=== PATIENT | female | born 1965 | race Two or more races ===

== ENCOUNTER 2025-09-27 23:32 | Inpatient (IN) | payer MEDICAID, OTHER ==
[~2025-09-27] VITALS: Ht 167.6 cm; Wt 82.8 kg
[2025-09-28 00:14] LABS: Hematocrit 45.3 % (36.0-46.0); Hemoglobin 15.9 g/dL (12.2-16.2); Mean Corpuscular Hemoglobin 30.4 pg (28.0-32.0); Mean Corpuscular Volume 86.7 fL (80.0-100.0); Nucleated Red Blood Cells % 0.0 %
[2025-09-28 00:25] LABS: Alanine Aminotransferase 22 U/L (7-40); Alkaline Phosphatase 96 U/L (46-116); Anion Gap 12 (5-15); BUN/Creatinine Ratio 18.8 (10.0-20.0); Blood Urea Nitrogen 15 mg/dL (9-23); Calcium 10.4 mg/dL (8.7-10.4); Carbon Dioxide 23 mmol/L (20-31); Chloride 103 mmol/L (98-107); Lipase 48 U/L (12-53); Sodium 138 mmol/L (136-145); Total Protein 8.0 g/dL (5.7-8.2)
[2025-09-28 00:26] LABS: Bilirubin, Total 0.6 mg/dL (0.2-1.0)
[2025-09-28 00:29] LABS: Albumin 5.0 g/dL (3.2-4.8); Glucose 155 mg/dL (74-106); Potassium 3.4 mmol/L (3.5-5.1)
[2025-09-28 00:33] LABS: Lactic Acid w/Reflex 2.4 mmol/L (0.4-2.0)
[2025-09-28] MEDS: ONDANSETRON ODT 4 MG TAB PO ONE (01:19)
[2025-09-28] MEDS: MAALOX PLUS or MAALOX 30 ML PO ONE (01:41)
--- NOTE | 2025-09-28 02:46 | ED.PDOC ---
GI ASSESSMENT HPI Comments 60-year-old female complaining of nausea and vomiting and burning in the throat. States she was at work today when she grabbed a cleaning solution, [employer] brand dishwashing disinfectant, she placed it in her lunch meal as she was going to take at home to use it at home. She states she went to lunch and was thirsty, she went to grab her water to drink and on accident grab the cleaning solution and took a Swig. States she swallowed the solution down and within 20 minutes started having throat pain and stomach pain. States she started having vomiting. She states it did burn when she drinks solution, she still has constant burning in his throat and now. Chief Complaint: Ingestion Time Seen by MD: 00:20 Reviewed Notes: Nurses Notes Allergies: Coded Allergies: NO KNOWN ALLERGIES (Unverified , 09/28/25) Information Source: Patient Mode of Arrival: Ambulatory Quality: Burning Vomitus: Bilious Past Medical History PAST MEDICAL HISTORY: Denies Surgical History: Denies all surgeries CARGO BROKER History: No Pertinent CARGO BROKER History Constitutional: denies: chills, diaphoresis, fatigue, fever, malaise, sweats, weakness, others EENTM: reports: throat pain; denies: blurred vision, double vision, ear bleeding, ear discharge, ear drainage, ear pain, ear ringing, eye pain, eye redness, hearing loss, mouth pain, mouth swelling, nasal discharge, nose bleeding, nose congestion, nose pain, photophobia, tearing, voice changes, others Respiratory: denies: cough, hemoptysis, orthopnea, SOB at rest, shortness of breath, SOB with excertion, stridor, wheezing, others Cardiovascular: denies: chest pain, dizzy spells, diaphoresis, Dyspnea on exertion, edema, irregular heart beat, left arm pain, lightheadedness, palpitations, PND, syncope, others Gastrointestinal: reports: nausea, vomiting; denies: abdomen distended, abdominal pain, blood streaked bowels, constipated, diarrhea, dysphagia, difficulty swallowing, hematemesis, melena, poor appetite, poor fluid intake, rectal bleeding, rectal pain, others Genitourinary: denies: abnormal vagina bleeding, burning, dyspareunia, dysuria, flank pain, frequency, hematuria, incontinence, pain, , vagina discharge, urgency, others Neurological: denies: dizziness, fainting, headache, left sided numbness, left sided weakness, numbness, paresthesia, pre-existing deficit, right sided numbness, right sided weakness, seizure, speech problems, tingling, tremors, weakness, others Musculoskeletal: denies: back pain, gout, joint pain, joint swelling, muscle pain, muscle stiffness, neck pain, others Integumetry: denies: bruises, change in color, change in hair/nails, dryness, laceration, lesions, lumps, rash, wounds, others Physical Exam General Appearance: Moderate Distress, Normal HEENT: Normal ENT Inspection, Pharynx Normal, TMs Normal Neck: Full Range of Motion, Non-Tender, Normal, Normal Inspection Respiratory: Chest Non-Tender, Lungs Clear, No Accessory Muscle Use, No Respiratory Distress, Normal Breath Sounds Cardiovascular: No Edema, No JVD, No Murmur, No Gallop, Normal Peripheral Pulses, Regular Rate/Rhythm Breast Exam: Deferred Gastrointestinal: No Organomegaly, Non Tender, No Pulsatile Mass, Normal Bowel Sounds, Soft Genitalia: Deferred Pelvic: Deferred Rectal: Deferred Extremities: No calf tenderness, Normal capillary refill, Normal inspection, Normal range of motion, Non-tender, No pedal edema Musculoskeletal : Apperance: Normal Neurologic: Alert, 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 Was a procedure done?: No GI differential Dx Differential Diagnosis: Esophageal Varicies, Other (Esophagitis) X-Ray, Labs, Meds, VS Vital Signs Date Time Temp Pulse Resp B/P (MAP) Pulse Ox O2 Delivery O2 Flow Rate FiO2 09/28/25 01:21 83 20 99 Room Air 09/28/25 01:21 97.5 83 20 149/91 (110) 99 97.5 09/28/25 00:23 99 18 151/96 (114) 99 09/27/25 23:46 92 09/27/25 23:33 97.0 95 26 154/94 98 97.0 Lab Test 09/28/25 00:04 Range/Units White Blood Count 10.7 4.4-10.8 10^3/uL Red Blood Count 5.22 H 4.0-5.20 10^6/uL Hemoglobin 15.9 12.2-16.2 g/dL Hematocrit 45.3 36.0-46.0 % Mean Corpuscular Volume 86.7 80.0-100.0 fL Mean Corpuscular Hemoglobin 30.4 28.0-32.0 pg Mean Corpuscular Hemoglobin Concent 35.1 32.0-36.0 g/dL Red Cell Distribution Width 13.3 11.8-14.3 % Platelet Count 247 140-450 10^3/uL Mean Platelet Volume 7.6 6.9-10.8 fL Neutrophils (%) (Auto) 65.8 37.0-80.0 % Lymphocytes (%) (Auto) 26.8 10.0-50.0 % Monocytes (%) (Auto) 5.6 0.0-12.0 % Eosinophils (%) (Auto) 1.2 0.0-7.0 % Basophils (%) (Auto) 0.6 0.0-2.0 % Neutrophils # (Auto) 7.1 1.6-8.6 10 ^3/uL Lymphocytes # (Auto) 2.9 0.4-5.4 10 ^3/uL Monocytes # (Auto) 0.6 0-1.3 10 ^3/uL Eosinophils # (Auto) 0.1 0-0.8 10 ^3/uL Basophils # (Auto) 0.1 0-0.2 10 ^3/uL Nucleated Red Blood Cells 0.0 % Sodium Level 138 136-145 mmol/L Potassium Level 3.4 L 3.5-5.1 mmol/L Chloride Level 103 98-107 mmol/L Carbon Dioxide Level 23 20-31 mmol/L Anion Gap 12 5-15 Blood Urea Nitrogen 15 9-23 mg/dL Creatinine 0.80 0.550-1.02 mg/dL Glomerular Filtration Rate Calc 85 >90 mL/min BUN/Creatinine Ratio 18.8 10.0-20.0 Serum Glucose 155 H 74-106 mg/dL Lactic Acid Level 2.4 *H 0.4-2.0 mmol/L Calcium Level 10.4 8.7-10.4 mg/dL Total Bilirubin 0.6 0.2-1.0 mg/dL Aspartate Amino Transferase (AST) 21 13-40 U/L Alanine Aminotransferase (ALT) 22 7-40 U/L Alkaline Phosphatase 96 46-116 U/L Troponin I High Sensitivity < 3 L </=34 ng/L Total Protein 8.0 5.7-8.2 g/dL Albumin 5.0 H 3.2-4.8 g/dL Lipase 48 12-53 U/L Current Medications Medications (Trade) Dose Ordered Sig/Juvencio Route Start Time Stop Time Status Last Admin Ondansetron HCl (Zofran Po) 4 mg ONCE ONCE PO 09/28/25 00:45 09/28/25 00:46 DC 09/28/25 01:19 Al Hydrox/Mg Hydrox/Simethicone (Maalox Plus) 30 ml ONCE ONCE PO 09/28/25 01:00 09/28/25 01:01 DC 09/28/25 01:41 X-Ray, Labs, Meds, VS Comment Patient reports no significant change in her symptoms, so reporting burning with swallowing. She was able to tolerate and swallow the GI cocktail. Due to her continued pain, patient will be admitted for GI consult in the morning and pain control. Patient has no airway compromise at this time. Per poison control, if patient has any troubles with swallowing and no significant improvement she is to be admitted for GI consult at endoscopy. Time of 1ST Reevaluation: 02:44 Reevaluation 1ST: Unchanged Patient Education/Counseling: Diagnosis, Treatment Family Education/Counseling: Diagnosis, Treatment SEPSIS Sepsis Screen Date sepsis recognized/suspect: Sep 27, 2025 Time Sepsis recognized/suspect: 2337 Recent Procedure: No On Antibiotic Therapy: No Respiratory Rate >20: No Heart Rate >90: Yes Temp<36 C (96.8 F) or >38.3 C: No SBP <90 or MAP <65 mmHG: No New Acute Mental Status Change: No Is the patient on CPAP, BIPAP,: No Physician Orders Po Trial (09/27/25 ) Vital Signs Date Time Temp Pulse Resp B/P (MAP) Pulse Ox O2 Delivery O2 Flow Rate FiO2 09/28/25 01:21 83 20 99 Room Air 09/28/25 01:21 97.5 83 20 149/91 (110) 99 97.5 09/28/25 00:23 99 18 151/96 (114) 99 09/27/25 23:46 92 09/27/25 23:33 97.0 95 26 154/94 98 97.0 Laboratory Tests Test 09/28/25 00:04 Lactic Acid Level 2.4 mmol/L (0.4-2.0) *H White Blood Count 10.7 10^3/uL (4.4-10.8) Medications Medications Dose Ordered Sig/Juvencio Route Start Time Stop Time Status Last Admin Dose Admin Al Hydrox/Mg Hydrox/Simethicone 30 ml ONCE ONCE PO 09/28/25 01:00 09/28/25 01:01 DC 09/28/25 01:41 Ondansetron HCl 4 mg ONCE ONCE PO 09/28/25 00:45 09/28/25 00:46 DC 09/28/25 01:19 Departure 1 Departure Time of Disposition: 02:37 Impression: Primary Impression: Ingestion of caustic substance Qualified Codes: T54.91XA - Toxic effect of unspecified corrosive substance, accidental (unintentional), initial encounter Disposition: ADMITTED INPATIENT Condition: Stable Discharged With: Self Critical Care Note Critical Care Time?: No Stability Stability form required: No Heart Score Heart Score: Heart Score Response (Comments) Value History N/A 0 EKG N/A 0 Age N/A 0 Risk Factors N/A 0 Troponin N/A 0 Total 0 LEANN JACOB Sep 28, 2025 02:46
--- NOTE | 2025-09-28 04:24 | DVHHPRES ---
History of Present Illness Resident Creating Document: MARI GALLAGHER History of Present Illness Patient is a Icelandic-speaking 60-year-old female with past medical history of vertigo, presented to [facility] ED after accidental ingestion of a cleaning solution. Earlier in the day, while at work, the patient mistakenly drank [place] brand dishwashing disinfectant, believing it was water. She immediately experienced a burning sensation in her throat upon ingestion. Within 20 minutes, she developed nausea, and began vomiting. She reports that the burning in her throat has persisted and and active vomiting. On evaluation in the ED, patient is afebrile, tachycardia and blood pressure is 154/94 mmHg. Initial labs show hypokalemia and lactic acid 2.4. The patient was placed NPO, started on pain management and IV fluids. Patient is admitted for further evaluation and management. Past Medical History Vertigo Past Surgical History Shoulder surgery Family History: None Smoke: No ALCOHOL: none Drugs: None Lives: with Family Review of Systems Review of Systems Eyes: No Pain, No Vision change, No Conjunctivae inflammation, No Eyelid inflammation, No Other, No Redness ENT: No Ear pain, No Ear discharge, No Nose pain, No Nose discharge, No Nose congestion, No Mouth pain, No Mouth swelling, Throat pain, No Throat swelling, No Other Cardiovascular: No Chest Pain, No Palpitations, No Orthopnea, No Paroxysmal No Dyspnea, No Edema, No Lt Headedness, No Other Respiratory: No Cough, No Dry, No Shortness of breath, No SOB with exertion, No Wheezing, No Hemoptysis, No Pleuritic Pain, No Sputum, No Other Gastrointestinal: Nausea, Vomiting, No Abdominal Pain, No Diarrhea, No Constipation, No Melena, No Hematochezia, No Other Genitourinary: No Dysuria, No Frequency, No Incontinence, No Hematuria, No Retention, No Other Musculoskeletal: No other, No neck pain, No shoulder pain, No arm pain, No back pain, No hand pain, No leg pain, No foot pain Skin: No Rash, No Lesions, No Jaundice, No Bruising, No Other Allergies: Coded Allergies: NO KNOWN ALLERGIES (Unverified , 09/28/25) Exam Vital Signs Vital Signs Date Time Temp Pulse Resp B/P (MAP) Pulse Ox O2 Delivery O2 Flow Rate FiO2 09/28/25 01:21 83 20 99 Room Air 09/28/25 01:21 97.5 149/91 (110) 97.5 Exam General Appearance: Cooperative. Well developed. Well nourished. NAD Head Exam: Normal inspection Neck Exam: Normal inspection. Non-tender. Normal alignment Pulmonary/Respiratory: Chest non-tender. Clear bilateral breath sounds, no cr ackles, no wheezing. Cardiovascular/Chest: Regular rate and rhythm. No murmurs. No JVD. Peripheral Pulses: 2+ Radial (R). 2+ Radial (L). 2+ Pedal (R). 2+ Pedal (L) Abdominal Exam: Normal bowel sounds. Soft. normal abdomen, no visible veins, Nontender. No hepatospenomegaly. No masses Ankle Exam: Negative ankle edema Lower extremities: Negative lower extremity edema Neuro/Mental Status: A&O x4. Coherent. Thoughts/Psych: Normal thought pattern. Appropriate mood and affect. Good judgement and insight Skin Exam: Normal inspection. Normal color. Warm. Dry Labs/Xrays Labs Test 09/28/25 02:16 09/28/25 00:04 Range/Units Lactic Acid Level 3.0 *H 0.4-2.0 mmol/L White Blood Count 10.7 4.4-10.8 10^3/uL Red Blood Count 5.22 H 4.0-5.20 10^6/uL Hemoglobin 15.9 12.2-16.2 g/dL Hematocrit 45.3 36.0-46.0 % Mean Corpuscular Volume 86.7 80.0-100.0 fL Mean Corpuscular Hemoglobin 30.4 28.0-32.0 pg Mean Corpuscular Hemoglobin Concent 35.1 32.0-36.0 g/dL Red Cell Distribution Width 13.3 11.8-14.3 % Platelet Count 247 140-450 10^3/uL Mean Platelet Volume 7.6 6.9-10.8 fL Neutrophils (%) (Auto) 65.8 37.0-80.0 % Lymphocytes (%) (Auto) 26.8 10.0-50.0 % Monocytes (%) (Auto) 5.6 0.0-12.0 % Eosinophils (%) (Auto) 1.2 0.0-7.0 % Basophils (%) (Auto) 0.6 0.0-2.0 % Neutrophils # (Auto) 7.1 1.6-8.6 10 ^3/uL Lymphocytes # (Auto) 2.9 0.4-5.4 10 ^3/uL Monocytes # (Auto) 0.6 0-1.3 10 ^3/uL Eosinophils # (Auto) 0.1 0-0.8 10 ^3/uL Basophils # (Auto) 0.1 0-0.2 10 ^3/uL Nucleated Red Blood Cells 0.0 % Sodium Level 138 136-145 mmol/L Potassium Level 3.4 L 3.5-5.1 mmol/L Chloride Level 103 98-107 mmol/L Carbon Dioxide Level 23 20-31 mmol/L Anion Gap 12 5-15 Blood Urea Nitrogen 15 9-23 mg/dL Creatinine 0.80 0.550-1.02 mg/dL Glomerular Filtration Rate Calc 85 >90 mL/min BUN/Creatinine Ratio 18.8 10.0-20.0 Serum Glucose 155 H 74-106 mg/dL Calcium Level 10.4 8.7-10.4 mg/dL Total Bilirubin 0.6 0.2-1.0 mg/dL Aspartate Amino Transferase (AST) 21 13-40 U/L Alanine Aminotransferase (ALT) 22 7-40 U/L Alkaline Phosphatase 96 46-116 U/L Troponin I High Sensitivity < 3 L </=34 ng/L Total Protein 8.0 5.7-8.2 g/dL Albumin 5.0 H 3.2-4.8 g/dL Lipase 48 12-53 U/L SEPSIS Sepsis Screen Date sepsis recognized/suspect: Sep 27, 2025 Time Sepsis recognized/suspect: 2337 Recent Procedure: No On Antibiotic Therapy: No Respiratory Rate >20: No Heart Rate >90: Yes Temp<36 C (96.8 F) or >38.3 C: No SBP <90 or MAP <65 mmHG: No New Acute Mental Status Change: No Is the patient on CPAP, BIPAP,: No Physician Orders Po Trial (09/27/25 ) * Gi Dvh Exhaust Equipment Operator (09/28/25 02:47) Admit (09/28/25 03:37) Allergies (09/28/25 03:37) Code Status (09/28/25 03:37) Ondansetron Hcl (Zofran) (09/28/25 03:45) Complete Blood Count (09/28/25 04:00) Comprehensive Metabolic Panel (09/28/25 04:00) Npo (Nothing By Mouth) Diet (09/28/25 Breakfast) Condition: Serious (09/28/25 03:37) Stat Ekg For Chest Pain (09/28/25 03:37) Notify Of Changes From Base (09/28/25 03:37) Loop Cutter For 24 Hours (09/28/25 03:37) Emergency Dysrhythmia Protocol (09/28/25 03:37) Rhythm Strips Once Every Shift (09/28/25 03:37) Pantoprazole (Protonix) (09/28/25 10:00) Pantoprazole (Protonix) (09/28/25 03:45) NS (09/28/25 03:45) NS (09/28/25 03:45) Chest Xray 1 View (09/28/25 03:37) Hydromorphone Injection (Dilaudid Inject (09/28/25 03:45) Lactic Acid W/ Reflex Order (09/28/25 04:00) Electrocardigram (09/28/25 03:37) Ondansetron Hcl (Zofran) (09/28/25 03:45) Abdomen Contrast Only (09/28/25 03:37) Chest With Contrast (09/28/25 03:37) Potassium Chl Sekou Kcl (09/28/25 03:45) Magnesium (09/28/25 03:37) Urinalysis (09/28/25 03:37) Drug Screen (09/28/25 03:37) PTPTT (09/28/25 03:37) Vital Signs Date Time Temp Pulse Resp B/P (MAP) Pulse Ox O2 Delivery O2 Flow Rate FiO2 09/28/25 01:21 83 20 99 Room Air 09/28/25 01:21 97.5 83 20 149/91 (110) 99 97.5 09/28/25 00:23 99 18 151/96 (114) 99 09/27/25 23:46 92 09/27/25 23:33 97.0 95 26 154/94 98 97.0 Laboratory Tests Test 09/28/25 00:04 09/28/25 02:16 Lactic Acid Level 2.4 mmol/L (0.4-2.0) *H 3.0 mmol/L (0.4-2.0) *H White Blood Count 10.7 10^3/uL (4.4-10.8) Medications Medications Dose Ordered Sig/Juvencio Route Start Time Stop Time Status Last Admin Dose Admin Al Hydrox/Mg Hydrox/Simethicone 30 ml ONCE ONCE PO 09/28/25 01:00 09/28/25 01:01 DC 09/28/25 01:41 30 ML Ondansetron HCl 4 mg ONCE ONCE PO 09/28/25 00:45 09/28/25 00:46 DC 09/28/25 01:19 4 MG Assessment/Plan Assessment/Plan Caustic substance ingestion, likely esophageal injury Intractable nausea and vomiting due to above Chest X-ray ordered CT chest ordered to rule out intramural necrosis of GI tract GI consult NPO pain management with Dilaudid 0.5 MG IV q4h prn Zofran 4 MG IV q4h prn Protonix 40 MG IV bid Potassium IV q3h IV NS 1,000 MLS/HR IV NS 125 MLS/HR one UA and UDS Lactic acid 2.4 > 3.0 > 2.4 MG PT/PTT Diet: NPO PUD prophylaxis: protonix 40mg Goals of care: Full code, discussed for >30 minutes on 09/28/25 Plan discussed with patient Plan discussed with Dr. Tejada Plan discussed with: Patient, Daughter My Orders Orders - MARI GALLAGHER RESIDENT Procedure Category Date Status Time Admit ADMIT 09/28/25 Verified 03:37 Allergies [facility] 09/28/25 Verified 03:37 Code Status CODE 09/28/25 Verified 03:37 Ondansetron Hcl PHA 09/28/25 Verified (Zofran) 03:45 Complete Blood Count LAB 09/28/25 Verified 04:00 Comprehensive LAB 09/28/25 Verified Metabolic Panel 04:00 Npo (Nothing By DIET 09/28/25 Verified Mouth) Diet Breakfast Condition: Serious [facility] 09/28/25 Verified 03:37 Stat Ekg For Chest [facility] 09/28/25 Verified Pain 03:37 Notify Of Changes [facility] 09/28/25 Verified From Base 03:37 Loop Cutter For [facility] 09/28/25 Verified 24 Hours 03:37 Emergency Dysrhythmia [facility] 09/28/25 Verified Protocol 03:37 Rhythm Strips Once [facility] 09/28/25 Verified Every Shift 03:37 Pantoprazole PHA 09/28/25 Verified (Protonix) 10:00 Pantoprazole PHA 09/28/25 Verified (Protonix) 03:45 NS PHA 09/28/25 Verified 03:45 NS PHA 09/28/25 Verified 03:45 Chest Xray 1 View XY 09/28/25 Verified 03:37 Hydromorphone PHA 09/28/25 Verified Injection (Dilaudid 03:45 Lactic Acid W/ Reflex LAB 09/28/25 Verified Order 04:00 Electrocardigram EKG 09/28/25 Verified 03:37 Ondansetron Hcl PHA 09/28/25 Verified (Zofran) 03:[address] 09/28/25 Verified 03:[address] 09/28/25 Verified 03:37 Potassium Chl Sekou PHA 09/28/25 Verified KCL 03:45 Magnesium LAB 09/28/25 Verified 03:37 Urinalysis LAB 09/28/25 Verified 03:37 Drug Screen LAB 09/28/25 Verified 03:37 PTPTT LAB 09/28/25 Verified 03:37 Date of Service: Sep 28, 2025 Billing Provider: AARON TEJADA MD Common Visit Codes: 88156-[id number] INP/OBS CARE (HIGH) Secondary Visit Codes: [id number] CARE PLAN 30 MINUTES MARI GALLAGHER RESIDENT Sep 28, 2025 04:23
[2025-09-28 04:34] LABS: Hematocrit 44.3 % (36.0-46.0); Hemoglobin 15.2 g/dL (12.2-16.2); Mean Corpuscular Hemoglobin 29.8 pg (28.0-32.0); Mean Corpuscular Volume 87.0 fL (80.0-100.0); Nucleated Red Blood Cells % 0.0 %
[2025-09-28 04:48] LABS: INR 1.06 (0.9-1.15); Partial Thromboplastin Time 25.7 SEC (24.5-34.5); Prothrombin Time 11.2 sec (9.3-11.8)
[2025-09-28] MEDS: SODIUM CHLORIDE 0.9% 1,000 ML IV ONE ×2 (05:01→06:23)
[2025-09-28 05:03] LABS: Alanine Aminotransferase 24 U/L (7-40); Alkaline Phosphatase 93 U/L (46-116); Anion Gap 14 (5-15); BUN/Creatinine Ratio 28.9 (10.0-20.0); Bilirubin, Total 0.4 mg/dL (0.2-1.0); Calcium 9.9 mg/dL (8.7-10.4); Carbon Dioxide 23 mmol/L (20-31); Chloride 104 mmol/L (98-107); Potassium 5.0 mmol/L (3.5-5.1); Sodium 141 mmol/L (136-145); Total Protein 7.6 g/dL (5.7-8.2)
[2025-09-28 05:12] LABS: Albumin 4.8 g/dL (3.2-4.8); Blood Urea Nitrogen 24 mg/dL (9-23); Glucose 141 mg/dL (74-106)
[2025-09-28 05:13] LABS: Lactic Acid w/Reflex 2.4 mmol/L (0.4-2.0)
[2025-09-28] MEDS ORDERED: IOHEXOL 300 MG/ML 100ML BOTTLE IJ ONE (05:34)
[2025-09-28] MEDS: POTASSIUM CHL 20MEQ/100ML 100 ML IV SCH (05:45)
--- NOTE | 2025-09-28 06:07 | DVH ---
CHEST RADIOGRAPH Indication: chest pain Technique: Single frontal view of the chest was obtained COMPARISON: None FINDINGS: Lines and Tubes: None Lungs: Clear Pleura: No effusion. No pneumothorax. Cardiomediastinal contours: Unremarkable Bones: Unremarkable IMPRESSION: 1. No acute disease.
[2025-09-28] MEDS: ONDANSETRON HCL 4 MG/2 ML VIAL IV ONE (06:22)
[2025-09-28] MEDS: PANTOPRAZOLE 40 MG/10 ML VIAL INJ IV ONE (06:22)
--- NOTE | 2025-09-28 06:42 | DVH ---
Exam: CT CT CHEST/AB/PL W CON- IV ONLY History: caustic substance ingestion Comparison Study: None Technique: Multidetector spiral CT of the chest, abdomen and pelvis was performed from lower neck to pubic symphysis. Intravenous contrast was administered during this examination. Portal venous imaging was obtained. Axial, coronal and sagittal multiplanar reformats were performed by the technologist on a separate workstation. Radiation Dose : 1. Chest/Abdomen/Pelvis: CTDIvol 18.83 mGy, DLP 1363.14 mGy*cm. Findings: Lower neck: Normal thyroid. Lungs: No focal consolidation, pleural effusion or pneumothorax. Heart/Vascular Structures: Normal heart size. No pericardial effusion. Lymph Nodes: No adenopathy Pleura: No pleural effusion or significant pneumothorax. Liver: The liver is normal in size. No focal lesions. Normal hepatic vascular enhancement. Gallbladder and Biliary Tree: Unremarkable Spleen: Unremarkable Pancreas: The pancreas is normal in appearance without focal lesions or abnormal enhancement. Adrenal Glands: Unremarkable Kidneys: Kidneys demonstrate normal symmetric enhancement without focal lesions, calculi or hydronephrosis. Bladder: Unremarkable Bowel: The stomach is grossly normal in appearance. Retained colorectal stool. Small bowel and colon are otherwise normal in caliber and distribution. The appendix is normal. Ascites: Absent Lymphadenopathy: No mesenteric, retroperitoneal or periportal lymphadenopathy. Abdominal Wall and Mesentery: Unremarkable. Vasculature: The visualized abdominal aorta is normal in size and caliber. Abdominal and pelvic vessels demonstrate normal enhancement. Pelvic Organs: Unremarkable Musculoskeletal: No aggressive focal bony lesions, acute fractures or dislocation. IMPRESSION: 1. No acute findings involving the chest, abdomen or pelvis. 2. Retained colorectal stool.
[2025-09-28 07:45] VITALS: BP 141/78; PULSE 96; RESP 18; TEMP 98.4; O2SAT 97
[2025-09-28 07:53] LABS: Urine Protein, UAD Negative (Negative)
[2025-09-28 07:56] LABS: Amphetamine Screen, Urine Neg (NEGATIVE); Barbiturate Scree,Urine Neg (NEGATIVE); Benzodiazephine Screen, Urine Neg (NEGATIVE); Cannabinoid Screen, Urine Neg (NEGATIVE); Cocaine Screen, Urine Neg (NEGATIVE); Opiate Scree,Urine Neg (NEGATIVE); Phencyclidine Screen, Urine Neg (NEGATIVE)
[2025-09-28] MEDS: PANTOPRAZOLE 40 MG/10 ML VIAL INJ IV SCH (10:00)
[2025-09-28] MEDS: HYDROmorphone HCL 2 MG/ML VL/or syr IV PRN (10:40)
[2025-09-28] MEDS: SODIUM CHLORIDE 0.9% 500 ML IV ONE (10:46)
--- NOTE | 2025-09-28 12:39 | DVHPN2 ---
Reviewed: Care Plan, H&P Changes from previous H/P or p: No Changes General: Per HPI Objective Vitals Vital Signs Date Time Temp Pulse Resp B/P (MAP) Pulse Ox O2 Delivery O2 Flow Rate FiO2 09/28/25 10:40 96 18 141/78 09/28/25 07:45 98.4 97 98.4 09/28/25 01:21 Room Air Exam Gen - no pallor, no scleral icterus Skin - Patients skin is warm and dry. HEENT - normocephalic, atraumatic, dry mucous membranes. Neck - supple, no lymphadenopathy Pulmonary - B/L clear breath sounds cardiovascular - regular S1,S2 heard GI - soft nontender abdomen. Bowel sounds normoactive. Neurological - Patient is alert and oriented x4. No motor or sensory weakness Medications Current Medications Medications Dose Ordered Sig/Juvencio Route Start Time Stop Time Status Last Admin Dose Admin Ondansetron HCl 4 mg Q4HP PRN IV 09/28/25 03:45 Pantoprazole Sodium 40 mg BID IV 09/28/25 10:00 Hydromorphone HCl 0.5 mg Q4HPRN PRN IV 09/28/25 03:45 09/28/25 10:40 0.5 MG Sucralfate 1 gm QID@0600,1130,1700,2200 PO 09/28/25 11:30 Lidocaine HCl 5 ml Q6HR MT 09/28/25 12:00 Laboratory Results Laboratory Tests 09/28/25 04:15 Chemistry Test 09/28/25 00:04 09/28/25 04:15 Albumin 5.0 g/dL (3.2-4.8) H 4.8 g/dL (3.2-4.8) Calcium Level 10.4 mg/dL (8.7-10.4) 9.9 mg/dL (8.7-10.4) Total Protein 8.0 g/dL (5.7-8.2) 7.6 g/dL (5.7-8.2) Magnesium Level 2.1 mg/dL (1.6-2.6) Coagulation Test 09/28/25 04:15 Prothrombin Time 11.2 sec (9.3-11.8) Prothrombin Time INR 1.06 (0.9-1.15) Activated Partial Thromboplast Time 25.7 SEC (24.5-34.5) Lipid panel Test 09/28/25 00:04 Lipase 48 U/L (12-53) LFT Test 09/28/25 00:04 09/28/25 04:15 Alanine Aminotransferase (ALT) 22 U/L (7-40) 24 U/L (7-40) Alkaline Phosphatase 96 U/L (46-116) 93 U/L (46-116) Aspartate Amino Transferase (AST) 21 U/L (13-40) 26 U/L (13-40) Total Bilirubin 0.6 mg/dL (0.2-1.0) 0.4 mg/dL (0.2-1.0) Urinalysis Test 09/28/25 07:32 Urine Color Light-yellow (Yellow) Urine Clarity Clear (Clear) Urine pH 7.0 (5.0-9.0) Urine Specific [place] 1.039 (1.001-1.035) Urine Protein Negative (Negative) Urine Ketones Negative (Negative) Urine Blood Negative /uL (Negative) Urine Nitrite Negative (Negative) Urine Bilirubin Negative (Negative) Urine Urobilinogen Normal mg/dL (Negative) Urine Leukocyte Esterase Negative /uL (Negative) Urine RBC 1 /hpf (0 - 4) Urine Microscopic WBC 1 /HPF (0-5) Urine Squamous Epithelial Cells None seen /hpf (<5) Urine Bacteria None seen /hpf (None Seen) Urine Glucose Normal mg/dL (Normal) Labs and/or images reviewed: Labs reviewed by me, Image(s) reviewed by me Assessment/Plan Assessment/Plan 60-year-old female with past medical history of vertigo, presented to [facility] ED after accidental ingestion of a cleaning solution. Earlier in the day, while at work, the patient mistakenly drank [place] brand dishwashing disinfectant, believing it was water. She immediately experienced a burning sensation in her throat upon ingestion. Within 20 minutes, she developed nausea, and began vomiting. She reports that the burning in her throat has persisted and and active vomiting. On evaluation in the ED, patient is afebrile, tachycardia and blood pressure is 154/94 mmHg. Initial labs show hypokalemia and lactic acid 2.4. The patient was placed NPO, started on pain management and IV fluids. Patient is admitted for further evaluation and management. 09/28: Patient drank dishwashing disinfectant, unclear if it is acidic or alkalotic. We will keep patient NPO. Lactic acidosis we will give IV fluids and repeat lactic follow up. GI consult pending. Diagnosis: Odynophagia likely due to caustic ingestion Possible acute gastritis chemical induced SIRS Lactic acidosis, likely due to IV VD from vomiting Intractable nausea and vomiting Plan - continue conservative management -GI consulted: Plan for IV Protonix- Carafate 10 mL q.i.d.0- lidocaine viscous 5 mL q.i.d.- started on clear liquid diet, we will see how the patient tolerates, if with the patient's odynophagia does not resolve we may endoscopy - daily labs CBC CMP Continue other home medications as patient has been on clear liquid diet Tele Full code Plan discussed with: Patient Date of Service: Sep 28, 2025 Billing Provider: LINDA VALDEZ MD Common Visit Codes: [id number] INP/OBS CARE(HIGH) LINDA VALDEZ MD Sep 28, 2025 12:39
[2025-09-28] MEDS: SUCRALFATE 1 GM/10 ML ORAL SUSP PO SCH (12:42)
[2025-09-28 12:44] VITALS: BP 124/68; PULSE 83; RESP 18; TEMP 98.5; O2SAT 96
[2025-09-28] MEDS: LIDOCAINE VISCOUS 2% 15ML UD MT SCH (12:48)
--- NOTE | 2025-09-28 13:27 | DVHCONRES ---
Date Seen: Sep 28, 2025 Resident Creating Document: JHAJJCHE RESIDENT Referring Physician LISA Pimentel Reason for Consultation Esophagitis s/p caustic chemical ingestion History of Present Illness Patient is a Faroese-speaking 60-year-old female with past medical history of vertigo, presented to [facility] ED after accidental ingestion of a cleaning solution. Earlier in the day, while at work, the patient mistakenly drank [place] brand dishwashing disinfectant, believing it was water. She immediately experienced a burning sensation in her throat upon ingestion. Within 20 minutes, she developed nausea, and began vomiting. She reports that the burning in her throat has persisted and and active vomiting. On evaluation in the ED, patient is afebrile, tachycardia and blood pressure is 154/94 mmHg. Initial labs show hypokalemia and lactic acid 2.4. The patient was placed NPO, started on pain management and IV fluids. Patient is admitted for further evaluation and management. Past Medical History Vertigo Past Surgical History Shoulder surgery Family History Noncontributory Social History Denies smoking, alcohol, drug use Allergies: Coded Allergies: NO KNOWN ALLERGIES (Unverified , 09/28/25) Current Medications Current Medications Medications (Trade) Dose Ordered Sig/Juvencio Route PRN Reason Start Time Stop Time Status Last Admin Ondansetron HCl (Zofran) 4 mg Q4HP PRN IV NAUSEA / VOMITING 09/28/25 03:45 Pantoprazole Sodium (Protonix) 40 mg BID IV 09/28/25 10:00 Hydromorphone HCl (Dilaudid Injection) 0.5 mg Q4HPRN PRN IV SEVERE PAIN (7-10 PAIN SCALE) 09/28/25 03:45 09/28/25 10:40 Potassium Chloride 100 ml @ 50 mls/hr Q2H IV 09/28/25 03:45 09/28/25 07:44 DC Sucralfate (Carafate Susp) 1 gm QID@0600,1130,1700,2200 PO 09/28/25 11:30 09/28/25 12:42 Lidocaine HCl (Xylocaine 2% Viscous) 5 ml Q6HR MT 09/28/25 12:00 09/28/25 12:48 Review of Systems Patient reports of pain when she swallows Denies any nausea, vomiting, abdominal pain H&H is stable Lactic acid trending down Vital Signs Vital Signs Date Time Temp Pulse Resp B/P (MAP) Pulse Ox O2 Delivery O2 Flow Rate FiO2 09/28/25 12:44 98.5 83 18 124/68 (86) 96 98.5 09/28/25 01:21 Room Air Physical Exam Gen - no pallor, no scleral icterus Skin - Patients skin is warm and dry. HEENT - normocephalic, atraumatic, dry mucous membranes. Neck - supple, no lymphadenopathy Pulmonary - B/L clear breath sounds cardiovascular - regular S1,S2 heard GI - soft nontender abdomen. Bowel sounds normoactive. Neurological - Patient is alert and oriented x4. No motor or sensory weakness Labs/Diagnostic Data Labs Test 09/28/25 07:32 09/28/25 04:15 09/28/25 00:04 Range/Units Urine Color Light-yellow Yellow Urine Clarity Clear Clear Urine pH 7.0 5.0-9.0 Urine Specific [place] 1.039 H 1.001-1.035 Urine Protein Negative Negative Urine Ketones Negative Negative Urine Blood Negative Negative /uL Urine Nitrite Negative Negative Urine Bilirubin Negative Negative Urine Urobilinogen Normal Negative mg/dL Urine Leukocyte Esterase Negative Negative /uL Urine RBC 1 0 - 4 /hpf Urine Microscopic WBC 1 0-5 /HPF Urine Squamous Epithelial Cells None seen <5 /hpf Urine Bacteria None seen None Seen /hpf Urine Glucose Normal Normal mg/dL Urine Opiates Screen Neg NEGATIVE Urine Fentanyl Screen Neg NEGATIVE Urine Barbiturates Screen Neg NEGATIVE Urine Phencyclidine Screen Neg NEGATIVE Urine Amphetamines Screen Neg NEGATIVE Urine Benzodiazepines Screen Neg NEGATIVE Urine Cocaine Screen Neg NEGATIVE Urine Cannabinoids Screen Neg NEGATIVE White Blood Count 15.6 #H 4.4-10.8 10^3/uL Red Blood Count 5.10 4.0-5.20 10^6/uL Hemoglobin 15.2 12.2-16.2 g/dL Hematocrit 44.3 36.0-46.0 % Mean Corpuscular Volume 87.0 80.0-100.0 fL Mean Corpuscular Hemoglobin 29.8 28.0-32.0 pg Mean Corpuscular Hemoglobin Concent 34.3 32.0-36.0 g/dL Red Cell Distribution Width 13.3 11.8-14.3 % Platelet Count 241 140-450 10^3/uL Mean Platelet Volume 7.8 6.9-10.8 fL Neutrophils (%) (Auto) 90.1 H 37.0-80.0 % Lymphocytes (%) (Auto) 6.0 L 10.0-50.0 % Monocytes (%) (Auto) 3.5 0.0-12.0 % Eosinophils (%) (Auto) 0.1 0.0-7.0 % Basophils (%) (Auto) 0.3 0.0-2.0 % Neutrophils # (Auto) 14.0 H 1.6-8.6 10 ^3/uL Lymphocytes # (Auto) 0.9 0.4-5.4 10 ^3/uL Monocytes # (Auto) 0.5 0-1.3 10 ^3/uL Eosinophils # (Auto) 0 0-0.8 10 ^3/uL Basophils # (Auto) 0.1 0-0.2 10 ^3/uL Nucleated Red Blood Cells 0.0 % Prothrombin Time 11.2 9.3-11.8 sec Prothrombin Time INR 1.06 0.9-1.15 Activated Partial Thromboplast Time 25.7 24.5-34.5 SEC Sodium Level 141 136-145 mmol/L Potassium Level 5.0 3.5-5.1 mmol/L Chloride Level 104 98-107 mmol/L Carbon Dioxide Level 23 20-31 mmol/L Anion Gap 14 5-15 Blood Urea Nitrogen 24 H 9-23 mg/dL Creatinine 0.83 0.550-1.02 mg/dL Glomerular Filtration Rate Calc 82 >90 mL/min BUN/Creatinine Ratio 28.9 H 10.0-20.0 Serum Glucose 141 H 74-106 mg/dL Lactic Acid Level 2.4 *H 0.4-2.0 mmol/L Calcium Level 9.9 8.7-10.4 mg/dL Magnesium Level 2.1 1.6-2.6 mg/dL Total Bilirubin 0.4 0.2-1.0 mg/dL Aspartate Amino Transferase (AST) 26 13-40 U/L Alanine Aminotransferase (ALT) 24 7-40 U/L Alkaline Phosphatase 93 46-116 U/L Total Protein 7.6 5.7-8.2 g/dL Albumin 4.8 3.2-4.8 g/dL Troponin I High Sensitivity < 3 L </=34 ng/L Lipase 48 12-53 U/L Assessment Odynophagia likely due to caustic ingestion Possible acute gastritis chemical induced SIRS Plan - IV Protonix - Carafate 10 mL q.i.d.0 - lidocaine viscous 5 mL q.i.d. - started on clear liquid diet, we will see how the patient tolerates - as of now recommend conservative management, if with the patient's odynophagia does not resolve we may endoscopy Plan discussed with Dr. Collado Plan discussed with: Patient, Other (RN) CHE STEWART RESIDENT Sep 28, 2025 13:27
[2025-09-28] MEDS: ONDANSETRON HCL 4 MG/2 ML VIAL IV PRN (13:58)
[2025-09-28] MEDS ORDERED: SIMV10TA20 PO (15:55)
[2025-09-28] MEDS ORDERED: MECL-126 PO (15:55)
[2025-09-28] MEDS ORDERED: CHOL20002 PO (15:55)
[2025-09-28 16:47] VITALS: BP 118/67; PULSE 89; RESP 16; TEMP 98.4; O2SAT 96
[2025-09-28 20:00] VITALS: PULSE 84; RESP 17; O2SAT 96
[2025-09-28 21:00] VITALS: BP 133/78; PULSE 85; RESP 17; TEMP 97.7; O2SAT 96
[2025-09-28] MEDS: BACLOFEN 10 MG TAB PO SCH (22:00)
[2025-09-29] VITALS (7 sets, daily range): BP systolic 132–141; BP diastolic 80–90; PULSE 75–87; RESP 16–18; TEMP 97.4–98.6; O2SAT 92–98
[2025-09-29 07:01] LABS: Alanine Aminotransferase 15 U/L (7-40); Alkaline Phosphatase 74 U/L (46-116); BUN/Creatinine Ratio 16.7 (10.0-20.0); Blood Urea Nitrogen 11 mg/dL (9-23); Calcium 9.0 mg/dL (8.7-10.4); Carbon Dioxide 27 mmol/L (20-31); Potassium 3.6 mmol/L (3.5-5.1); Sodium 142 mmol/L (136-145); Total Protein 6.7 g/dL (5.7-8.2)
[2025-09-29 07:02] LABS: Albumin 4.2 g/dL (3.2-4.8); Bilirubin, Total 1.0 mg/dL (0.2-1.0)
[2025-09-29 07:12] LABS: Glucose 114 mg/dL (74-106); Hematocrit 38.9 % (36.0-46.0); Hemoglobin 13.3 g/dL (12.2-16.2); Mean Corpuscular Hemoglobin 30.0 pg (28.0-32.0); Mean Corpuscular Volume 87.6 fL (80.0-100.0); Nucleated Red Blood Cells % 0.0 %
[2025-09-29 09:09] LABS: Anion Gap 9 (5-15)
--- NOTE | 2025-09-29 15:19 | DVHPN2 ---
Progress Note - Dictate Date Seen: Sep 29, 2025 Medical Necessity Reason Pt with a Central, PICC or Fol: No Subjective Patient continues to have some trouble swallowing she was not drinking much of for clear liquids She is complaining of a sore throat and spitting up some phlegm Her family did bring in some electrolytes which she was able to drink vital signs Vital Sign Date Time Temp Pulse Resp B/P (MAP) Pulse Ox O2 Delivery O2 Flow Rate FiO2 09/29/25 13:00 98.6 78 16 133/80 (97) 96 98.6 09/29/25 08:00 Room Air* 0 21 Total Intake and Output 09/28/25 09/28/25 09/29/25 15:00 23:00 07:00 Intake Total 300 ml 250 ml Balance 300 ml 250 ml medications Current Medications Medications Dose Ordered Sig/Juvencio Route Start Time Stop Time Status Last Admin Dose Admin Ondansetron HCl 4 mg Q4HP PRN IV 09/28/25 03:45 09/28/25 13:58 4 MG Pantoprazole Sodium 40 mg BID IV 09/28/25 10:00 09/29/25 09:17 40 MG Hydromorphone HCl 0.5 mg Q4HPRN PRN IV 09/28/25 03:45 09/28/25 10:40 0.5 MG Sucralfate 1 gm QID@0600,1130,1700,2200 PO 09/28/25 11:30 09/29/25 11:12 1 GM Lidocaine HCl 5 ml Q6HR MT 09/28/25 12:00 09/29/25 11:13 5 ML Baclofen 10 mg BID PO 09/28/25 22:00 09/29/25 09:17 10 MG objective Awake alert, mild distress Pupils equal and react to light, extraocular movements intact Abdomen is soft nontender nondistended Extremities without clubbing cyanosis or edema Neuro she is nonfocal laboratory and microbiology Laboratory Tests 09/29/25 06:14 Test 09/29/25 06:14 Range/Units Serum Glucose 114 H 74-106 mg/dL Problems(with codes): (1) Oropharyngeal dysphagia (2) Ingestion of caustic substance Prognosis Plan Continue supportive care Start her on IV fluids D5 half-normal at 75 an hour If the patient continues to have poor oral intake we will put her on IV Clinimix She is on IV Protonix 40 mg q.12 hours Carafate suspension 1 g 4 times a day Lidocaine viscous jelly q.6 hours PRN for odynophagia NPO after clear liquid breakfast I will reassess her in the morning to see if she needs an endoscopy test ongoing conservative management for now and supportive care Plan discussed with: Patient, Other (Nurse) NASREEN CADENA MD Sep 29, 2025 15:19
--- NOTE | 2025-09-29 15:21 | DVHPN2 ---
Reviewed: Care Plan, H&P Changes from previous H/P or p: No Changes General: Per HPI Objective Vitals Vital Signs Date Time Temp Pulse Resp B/P (MAP) Pulse Ox O2 Delivery O2 Flow Rate FiO2 09/29/25 13:00 98.6 78 16 133/80 (97) 96 98.6 09/29/25 08:00 Room Air* 0 21 Intake/Output Intake and Output 09/29/25 07:00 Intake Total 550 ml Balance 550 ml Intake Oral 550 ml # Voids 2 Exam Gen - no pallor, no scleral icterus Skin - Patients skin is warm and dry. HEENT - normocephalic, atraumatic, dry mucous membranes. Neck - supple, no lymphadenopathy Pulmonary - B/L clear breath sounds cardiovascular - regular S1,S2 heard GI - soft nontender abdomen. Bowel sounds normoactive. Neurological - Patient is alert and oriented x4. No motor or sensory weakness Medications Current Medications Medications Dose Ordered Sig/Juvencio Route Start Time Stop Time Status Last Admin Dose Admin Ondansetron HCl 4 mg Q4HP PRN IV 09/28/25 03:45 09/28/25 13:58 4 MG Pantoprazole Sodium 40 mg BID IV 09/28/25 10:00 09/29/25 09:17 40 MG Hydromorphone HCl 0.5 mg Q4HPRN PRN IV 09/28/25 03:45 09/28/25 10:40 0.5 MG Sucralfate 1 gm QID@0600,1130,1700,2200 PO 09/28/25 11:30 09/29/25 11:12 1 GM Lidocaine HCl 5 ml Q6HR MT 09/28/25 12:00 09/29/25 11:13 5 ML Baclofen 10 mg BID PO 09/28/25 22:00 09/29/25 09:17 10 MG Laboratory Results Laboratory Tests 09/29/25 06:14 Chemistry Test 09/29/25 06:14 Albumin 4.2 g/dL (3.2-4.8) Calcium Level 9.0 mg/dL (8.7-10.4) Total Protein 6.7 g/dL (5.7-8.2) LFT Test 09/29/25 06:14 Alanine Aminotransferase (ALT) 15 U/L (7-40) Alkaline Phosphatase 74 U/L (46-116) Aspartate Amino Transferase (AST) 16 U/L (13-40) Total Bilirubin 1.0 mg/dL (0.2-1.0) Urinalysis Test 09/28/25 07:32 Urine Color Light-yellow (Yellow) Urine Clarity Clear (Clear) Urine pH 7.0 (5.0-9.0) Urine Specific [place] 1.039 (1.001-1.035) Urine Protein Negative (Negative) Urine Ketones Negative (Negative) Urine Blood Negative /uL (Negative) Urine Nitrite Negative (Negative) Urine Bilirubin Negative (Negative) Urine Urobilinogen Normal mg/dL (Negative) Urine Leukocyte Esterase Negative /uL (Negative) Urine RBC 1 /hpf (0 - 4) Urine Microscopic WBC 1 /HPF (0-5) Urine Squamous Epithelial Cells None seen /hpf (<5) Urine Bacteria None seen /hpf (None Seen) Urine Glucose Normal mg/dL (Normal) Labs and/or images reviewed: Labs reviewed by me, Image(s) reviewed by me Assessment/Plan Assessment/Plan 60-year-old female with past medical history of vertigo, presented to [facility] ED after accidental ingestion of a cleaning solution. Earlier in the day, while at work, the patient mistakenly drank [place] brand dishwashing disinfectant, believing it was water. She immediately experienced a burning sensation in her throat upon ingestion. Within 20 minutes, she developed nausea, and began vomiting. She reports that the burning in her throat has persisted and and active vomiting. On evaluation in the ED, patient is afebrile, tachycardia and blood pressure is 154/94 mmHg. Initial labs show hypokalemia and lactic acid 2.4. The patient was placed NPO, started on pain management and IV fluids. Patient is admitted for further evaluation and management. 09/28: Patient drank dishwashing disinfectant, unclear if it is acidic or alkalotic. We will keep patient NPO. Lactic acidosis we will give IV fluids and repeat lactic follow up. GI consult pending. 09/29: GI continuing to follow up patient. Continues on clear liquid diet., Lidocaine, Carafate p.o. swallow. NPO midnight, GI we will evaluate if they still need to do EGD. Diagnosis: Odynophagia likely due to caustic ingestion Possible acute gastritis chemical induced SIRS Lactic acidosis, likely due to IV VD from vomiting Intractable nausea and vomiting Plan - continue conservative management -GI consulted: Plan for IV Protonix- Carafate 10 mL q.i.d.0- lidocaine viscous 5 mL q.i.d.- started on clear liquid diet, we will see how the patient tolerates, if with the patient's odynophagia does not resolve we may endoscopy - daily labs CBC CMP Continue other home medications as patient has been on clear liquid diet Tele Full code Plan discussed with: Patient Date of Service: Sep 29, 2025 Billing Provider: LINDA VALDEZ MD Common Visit Codes: [id number] INP/OBS CARE(HIGH) LINDA VALDEZ MD Sep 29, 2025 15:21
[2025-09-29] MEDS: D5W/SOD CHL 0.45% 1,000 ML IV SCH (16:00)
[2025-09-30] VITALS (9 sets, daily range): BP systolic 125–163; BP diastolic 81–94; PULSE 67–84; RESP 16–18; TEMP 97–98.7; O2SAT 93–97
[2025-09-30 06:13] LABS: Hematocrit 39.5 % (36.0-46.0); Hemoglobin 14.0 g/dL (12.2-16.2); Mean Corpuscular Hemoglobin 30.8 pg (28.0-32.0); Mean Corpuscular Volume 87.2 fL (80.0-100.0); Nucleated Red Blood Cells % 0.0 %
[2025-09-30 06:29] LABS: Alanine Aminotransferase 15 U/L (7-40); Albumin 4.3 g/dL (3.2-4.8); Alkaline Phosphatase 81 U/L (46-116); Anion Gap 10 (5-15); BUN/Creatinine Ratio 15.1 (10.0-20.0); Bilirubin, Total 0.6 mg/dL (0.2-1.0); Calcium 9.2 mg/dL (8.7-10.4); Carbon Dioxide 28 mmol/L (20-31); Chloride 103 mmol/L (98-107); Potassium 3.8 mmol/L (3.5-5.1); Sodium 141 mmol/L (136-145); Total Protein 6.8 g/dL (5.7-8.2)
[2025-09-30 06:31] LABS: Blood Urea Nitrogen 8 mg/dL (9-23); Glucose 122 mg/dL (74-106)
--- NOTE | 2025-09-30 11:39 | DVHPN2 ---
Reviewed: Care Plan, H&P Changes from previous H/P or p: No Changes General: Per HPI Objective Vitals Vital Signs Date Time Temp Pulse Resp B/P (MAP) Pulse Ox O2 Delivery O2 Flow Rate FiO2 09/30/25 09:26 71 150/94 (112) 09/30/25 09:00 98.7 17 97 98.7 09/30/25 08:23 Room Air* 0 21 Intake/Output Intake and Output 09/30/25 07:00 Intake Total 1280 ml Balance 1280 ml Intake Oral 1280 ml # Voids 5 Exam Gen - no pallor, no scleral icterus Skin - Patients skin is warm and dry. HEENT - normocephalic, atraumatic, dry mucous membranes. Neck - supple, no lymphadenopathy Pulmonary - B/L clear breath sounds cardiovascular - regular S1,S2 heard GI - soft nontender abdomen. Bowel sounds normoactive. Neurological - Patient is alert and oriented x4. No motor or sensory weakness Medications Current Medications Medications Dose Ordered Sig/Juvencio Route Start Time Stop Time Status Last Admin Dose Admin Ondansetron HCl 4 mg Q4HP PRN IV 09/28/25 03:45 09/28/25 13:58 4 MG Pantoprazole Sodium 40 mg BID IV 09/28/25 10:00 09/30/25 08:43 40 MG Hydromorphone HCl 0.5 mg Q4HPRN PRN IV 09/28/25 03:45 09/29/25 21:06 0.5 MG Sucralfate 1 gm QID@0600,1130,1700,2200 PO 09/28/25 11:30 09/30/25 11:25 1 GM Lidocaine HCl 5 ml Q6HR MT 09/28/25 12:00 09/30/25 11:26 5 ML Baclofen 10 mg BID PO 09/28/25 22:00 09/30/25 08:43 10 MG Dextrose/Sodium Chloride 1,000 ml @ 75 mls/hr [id number] IV 09/29/25 15:30 09/30/25 05:54 75 MLS/HR Laboratory Results Laboratory Tests 09/30/25 04:47 Chemistry Test 09/30/25 04:47 Albumin 4.3 g/dL (3.2-4.8) Calcium Level 9.2 mg/dL (8.7-10.4) Total Protein 6.8 g/dL (5.7-8.2) LFT Test 09/30/25 04:47 Alanine Aminotransferase (ALT) 15 U/L (7-40) Alkaline Phosphatase 81 U/L (46-116) Aspartate Amino Transferase (AST) 15 U/L (13-40) Total Bilirubin 0.6 mg/dL (0.2-1.0) Urinalysis Test 09/28/25 07:32 Urine Color Light-yellow (Yellow) Urine Clarity Clear (Clear) Urine pH 7.0 (5.0-9.0) Urine Specific [place] 1.039 (1.001-1.035) Urine Protein Negative (Negative) Urine Ketones Negative (Negative) Urine Blood Negative /uL (Negative) Urine Nitrite Negative (Negative) Urine Bilirubin Negative (Negative) Urine Urobilinogen Normal mg/dL (Negative) Urine Leukocyte Esterase Negative /uL (Negative) Urine RBC 1 /hpf (0 - 4) Urine Microscopic WBC 1 /HPF (0-5) Urine Squamous Epithelial Cells None seen /hpf (<5) Urine Bacteria None seen /hpf (None Seen) Urine Glucose Normal mg/dL (Normal) Labs and/or images reviewed: Labs reviewed by me, Image(s) reviewed by me Assessment/Plan Assessment/Plan 60-year-old female with past medical history of vertigo, presented to [facility] ED after accidental ingestion of a cleaning solution. Earlier in the day, while at work, the patient mistakenly drank [place] brand dishwashing disinfectant, believing it was water. She immediately experienced a burning sensation in her throat upon ingestion. Within 20 minutes, she developed nausea, and began vomiting. She reports that the burning in her throat has persisted and and active vomiting. On evaluation in the ED, patient is afebrile, tachycardia and blood pressure is 154/94 mmHg. Initial labs show hypokalemia and lactic acid 2.4. The patient was placed NPO, started on pain management and IV fluids. Patient is admitted for further evaluation and management. 09/28: Patient drank dishwashing disinfectant, unclear if it is acidic or alkalotic. We will keep patient NPO. Lactic acidosis we will give IV fluids and repeat lactic follow up. GI consult pending. 09/29: GI continuing to follow up patient. Continues on clear liquid diet., Lidocaine, Carafate p.o. swallow. NPO midnight, GI we will evaluate if they still need to do EGD. 09/30: Continue lidocaine swallows, otherwise NPO waiting for GI recommendation need for EGD or not. Vital signs stable, labs stable, pain is improving. Still has a little discomfort with swallowing but lidocaine swallow helps. Waiting for GI recommendation if no EGD unit possible discharge today. Diagnosis: Odynophagia likely due to caustic ingestion Possible acute gastritis chemical induced SIRS Lactic acidosis, likely due to IV VD from vomiting Intractable nausea and vomiting Plan - continue conservative management -GI consulted: Plan for IV Protonix- Carafate 10 mL q.i.d.0- lidocaine viscous 5 mL q.i.d.- started on clear liquid diet, we will see how the patient tolerates, if with the patient's odynophagia does not resolve we may endoscopy - daily labs CBC CMP Continue other home medications as patient has been on clear liquid diet Tele Full code Plan discussed with: Patient Date of Service: Sep 30, 2025 Billing Provider: LINDA VALDEZ MD Common Visit Codes: [id number] INP/OBS CARE(HIGH) LINDA VALDEZ MD Sep 30, 2025 11:39
--- NOTE | 2025-09-30 18:12 | DVHPN2 ---
Progress Note Date Seen: Sep 30, 2025 Resident Creating Document: CHE STEWART RESIDENT Medical Necessity Reason Pt with a Central, PICC or Fol: No Subjective Review of Systems Patient tolerating clear liquid diet well without any odynophagia Reported having bowel movement today in the morning which was regular Denies any abdominal pain nausea or vomiting H&H is stable Objective vital signs Vital Sign Date Time Temp Pulse Resp B/P (MAP) Pulse Ox O2 Delivery O2 Flow Rate FiO2 09/30/25 17:00 98.3 69 17 146/87 (106) 97 98.3 09/30/25 08:23 Room Air* 0 21 Total Intake and Output 09/29/25 09/29/25 09/30/25 15:00 23:00 07:00 Intake Total 730 ml 550 ml Balance 730 ml 550 ml medications Current Medications Medications Dose Ordered Sig/Juvencio Route Start Time Stop Time Status Last Admin Dose Admin Ondansetron HCl 4 mg Q4HP PRN IV 09/28/25 03:45 09/28/25 13:58 4 MG Pantoprazole Sodium 40 mg BID IV 09/28/25 10:00 09/30/25 08:43 40 MG Hydromorphone HCl 0.5 mg Q4HPRN PRN IV 09/28/25 03:45 09/29/25 21:06 0.5 MG Sucralfate 1 gm QID@0600,1130,1700,2200 PO 09/28/25 11:30 09/30/25 17:02 1 GM Lidocaine HCl 5 ml Q6HR MT 09/28/25 12:00 09/30/25 17:03 5 ML Baclofen 10 mg BID PO 09/28/25 22:00 09/30/25 08:43 10 MG Dextrose/Sodium Chloride 1,000 ml @ 75 mls/hr [id number] IV 09/29/25 15:30 09/30/25 05:54 75 MLS/HR Examination Gen - no pallor, no scleral icterus Skin - Patients skin is warm and dry. HEENT - normocephalic, atraumatic, dry mucous membranes. Neck - supple, no lymphadenopathy Pulmonary - B/L clear breath sounds cardiovascular - regular S1,S2 heard GI - soft nontender abdomen. Bowel sounds normoactive. Neurological - Patient is alert and oriented x4. No motor or sensory weakness laboratory and microbiology Laboratory Tests 09/30/25 04:47 Test 09/30/25 04:47 Range/Units Serum Glucose 122 H 74-106 mg/dL Problem List/Assessment/Plan Problem List/Assessment/Plan Odynophagia likely due to caustic ingestion, resolving Possible acute gastritis chemical induced SIRS, resolved Plan - switched Protonix to p.o. - continue Carafate 10 mL q.i.d. - decreased lidocaine viscous 5 mL b.i.d. - tolerating clear liquid well, advanced to full liquid diet - since the patient is tolerating diet well without any odynophagia, no indication for EGD while inpatient as of now Plan discussed with Dr. Collado Plan discussed with: Patient, Other (RN) My Orders My Orders Orders - CHE STEWART Procedure Category Date Status Time Full Liq Diet DIET 09/30/25 Transmitted Dinner CHE STEWART Sep 30, 2025 18:12
[2025-09-30] MEDS: LIDOCAINE VISCOUS 2% 15ML UD MT SCH (21:31)
[2025-09-30] MEDS: PANTOPRAZOLE 40 MG TAB PO ONE (21:32)
[2025-10-01 01:00] VITALS: BP 116/76; PULSE 73; RESP 17; TEMP 97.8; O2SAT 91
[2025-10-01 05:00] VITALS: BP 109/74; PULSE 70; RESP 18; TEMP 98.4; O2SAT 94
[2025-10-01] MEDS: PANTOPRAZOLE 40 MG TAB PO SCH (05:30)
[2025-10-01 08:00] VITALS: PULSE 70
[2025-10-01 09:00] VITALS: BP 125/78; PULSE 63; RESP 17; TEMP 97.8; O2SAT 95
--- NOTE | 2025-10-01 11:03 | DVHDS2 ---
Discharge Summary Date of Admission Sep 28, 2025 at 03:37 Date of Discharge: Oct 01, 2025 Labs/Diagnostic Data: Laboratory Results Test 09/30/25 04:47 09/29/25 06:14 09/28/25 07:32 09/28/25 04:15 White Blood Count 8.3 10^3/uL (4.4-10.8) Red Blood Count 4.54 10^6/uL (4.0-5.20) Hemoglobin 14.0 g/dL (12.2-16.2) Hematocrit 39.5 % (36.0-46.0) Mean Corpuscular Volume 87.2 fL (80.0-100.0) Mean Corpuscular Hemoglobin 30.8 pg (28.0-32.0) Mean Corpuscular Hemoglobin Concent 35.3 g/dL (32.0-36.0) Red Cell Distribution Width 13.0 % (11.8-14.3) Platelet Count 214 10^3/uL (140-450) Mean Platelet Volume 7.8 fL (6.9-10.8) Neutrophils (%) (Auto) 78.0 % (37.0-80.0) Lymphocytes (%) (Auto) 16.3 % (10.0-50.0) Monocytes (%) (Auto) 5.2 % (0.0-12.0) Eosinophils (%) (Auto) 0.1 % (0.0-7.0) Basophils (%) (Auto) 0.4 % (0.0-2.0) Neutrophils # (Auto) 6.4 10 ^3/uL (1.6-8.6) Lymphocytes # (Auto) 1.3 10 ^3/uL (0.4-5.4) Monocytes # (Auto) 0.4 10 ^3/uL (0-1.3) Eosinophils # (Auto) 0 10 ^3/uL (0-0.8) Basophils # (Auto) 0 10 ^3/uL (0-0.2) Nucleated Red Blood Cells 0.0 % Sodium Level 141 mmol/L (136-145) Potassium Level 3.8 mmol/L (3.5-5.1) Chloride Level 103 mmol/L (98-107) Carbon Dioxide Level 28 mmol/L (20-31) Anion Gap 10 (5-15) Blood Urea Nitrogen 8 mg/dL (9-23) Creatinine 0.53 mg/dL (0.550-1.02) Glomerular Filtration Rate Calc 107 mL/min (>90) BUN/Creatinine Ratio 15.1 (10.0-20.0) Serum Glucose 122 mg/dL (74-106) Calcium Level 9.2 mg/dL (8.7-10.4) Total Bilirubin 0.6 mg/dL (0.2-1.0) Aspartate Amino Transferase (AST) 15 U/L (13-40) Alanine Aminotransferase (ALT) 15 U/L (7-40) Alkaline Phosphatase 81 U/L (46-116) Total Protein 6.8 g/dL (5.7-8.2) Albumin 4.3 g/dL (3.2-4.8) Lactic Acid Level 0.9 mmol/L (0.4-2.0) Urine Color Light-yellow (Yellow) Urine Clarity Clear (Clear) Urine pH 7.0 (5.0-9.0) Urine Specific Momence 1.039 (1.001-1.035) Urine Protein Negative (Negative) Urine Ketones Negative (Negative) Urine Blood Negative /uL (Negative) Urine Nitrite Negative (Negative) Urine Bilirubin Negative (Negative) Urine Urobilinogen Normal mg/dL (Negative) Urine Leukocyte Esterase Negative /uL (Negative) Urine RBC 1 /hpf (0 - 4) Urine Microscopic WBC 1 /HPF (0-5) Urine Squamous Epithelial Cells None seen /hpf (<5) Urine Bacteria None seen /hpf (None Seen) Urine Glucose Normal mg/dL (Normal) Urine Opiates Screen Neg (NEGATIVE) Urine Fentanyl Screen Neg (NEGATIVE) Urine Barbiturates Screen Neg (NEGATIVE) Urine Phencyclidine Screen Neg (NEGATIVE) Urine Amphetamines Screen Neg (NEGATIVE) Urine Benzodiazepines Screen Neg (NEGATIVE) Urine Cocaine Screen Neg (NEGATIVE) Urine Cannabinoids Screen Neg (NEGATIVE) Prothrombin Time 11.2 sec (9.3-11.8) Prothrombin Time INR 1.06 (0.9-1.15) Activated Partial Thromboplast Time 25.7 SEC (24.5-34.5) Magnesium Level 2.1 mg/dL (1.6-2.6) Test 09/28/25 00:04 Troponin I High Sensitivity < 3 ng/L (</=34) Lipase 48 U/L (12-53) Other Laboratory Tests 09/30/25 04:47 Brief Hx & Hospital Course: 60-year-old female with past medical history of vertigo, presented to [facility] ED after accidental ingestion of a cleaning solution. Earlier in the day, while at work, the patient mistakenly drank [employer] dishwashing disinfectant, believing it was water. She immediately experienced a burning sensation in her throat upon ingestion. Within 20 minutes, she developed nausea, and began vomiting. She reports that the burning in her throat has persisted and and active vomiting. On evaluation in the ED, patient is afebrile, tachycardia and blood pressure is 154/94 mmHg. Initial labs show hypokalemia and lactic acid 2.4. The patient was placed NPO, started on pain management and IV fluids. Patient is admitted for further evaluation and management. 09/28: Patient drank dishwashing disinfectant, unclear if it is acidic or alkalotic. We will keep patient NPO. Lactic acidosis we will give IV fluids and repeat lactic follow up. GI consult pending. 09/29: GI continuing to follow up patient. Continues on clear liquid diet., Lidocaine, Carafate p.o. swallow. NPO midnight, GI we will evaluate if they still need to do EGD. 09/30: Continue lidocaine swallows, otherwise NPO waiting for GI recommendation need for EGD or not. Vital signs stable, labs stable, pain is improving. Still has a little discomfort with swallowing but lidocaine swallow helps. Waiting for GI recommendation if no EGD unit possible discharge today. 10/01: Tolerating full liquid diet well, cleared from GI. Vital signs stable. Stable for discharge as per plan below. Needs to continue full liquid diet for 1 week, advance thereafter. Return to nearest ER if any abdominal pain starts in acute manner. Continue other home medications. Close follow up with PCP to review discharge. Take extra precautions and labile bottles to avoid confusion and further ingestion of caustic liquids. Diagnosis: Odynophagia likely due to caustic ingestion Possible acute gastritis chemical induced SIRS with end-organ damage Lactic acidosis, likely due to IV VD from vomiting, resolved Intractable nausea , resolved Plan: -continue full liquid diet for 1 week, advance thereafter. - Return to nearest ER if any sudden onset abdominal pain starts - Continue other home medications. -Close follow up with PCP to review discharge. - Take extra precautions and labile bottles to avoid confusion and further ingestion of caustic liquids. Condition at Discharge: Fair Final Diagnosis/Problems List Odynophagia likely due to caustic ingestion Possible acute gastritis chemical induced SIRS with end-organ damage Lactic acidosis, likely due to IV VD from vomiting, resolved Intractable nausea , resolved Discharge Disposition: Home Discharge Instruct/Medications Scheduled Cholecalciferol (Vitamin D3), 1 CAP PO DAILY, (Reported) Simvastatin (Simvastatin), 1 TAB PO DAILY, (Reported) Miscellaneous Medications Meclizine HCl (Meclizine Hydrochloride), TAB PO, (Reported) Discharge Statement: "Patient was advised to return to the ER or call 911 if any headaches, dizziness, shortness of breath, chest pain, abdominal pain, bleeding, fevers, or worsening of medical condition. Patient was counseled about treatment plan, medications, possible side effects, patientverbalized understanding. All questions were answered to the best of my ability. This discharge took greater then 30 minutes in planning, reviewing documentation, counseling the patient, and discussing with other team members." ASSESSMENT ASSESSMENT Assessment Date of Service: Oct 01, 2025 Billing Provider: LINDA VALDEZ MD Common Visit Codes: 69207-EEU/OBS DISCH DAY >30min LINDA VALDEZ MD Oct 01, 2025 11:03
[2025-10-01 12:43] VITALS: BP 133/90; PULSE 65; RESP 17; TEMP 97.7; O2SAT 96
[2025-10-01 17:12] VITALS: BP 123/68; PULSE 69; RESP 17; TEMP 98.2; O2SAT 96
--- NOTE | 2025-10-01 18:01 | DVHPN2 ---
Progress Note - Dictate Date Seen: Oct 01, 2025 (Late entryTime of visit 3:00 p.m.) Medical Necessity Reason Pt with a Central, PICC or Fol: No Subjective Patient is starting to bleed better She is tolerating a full liquid diet vital signs Vital Sign Date Time Temp Pulse Resp B/P (MAP) Pulse Ox O2 Delivery O2 Flow Rate FiO2 10/01/25 17:12 98.2 69 17 123/68 (86) 96 98.2 10/01/25 08:08 Room Air* 0 21 Total Intake and Output 09/30/25 09/30/25 10/01/25 15:00 23:00 07:00 Intake Total 1803 ml 500 ml Balance 1803 ml 500 ml objective Awake alert, mild distress Pupils equal and react to light, extraocular movements intact Abdomen is soft nontender nondistended Extremities without clubbing cyanosis or edema Neuro she is nonfocal laboratory and microbiology Laboratory Tests 09/30/25 04:47 Test 09/30/25 04:47 Range/Units Serum Glucose 122 H 74-106 mg/dL Problems(with codes): (1) Oropharyngeal dysphagia (2) Ingestion of caustic substance Prognosis Plan Discharge planning is in progress Protonix 40 mg p.o. twice a day Carafate suspension 1 g p.o. twice a day Patient was advised to take a bland soft diet for the next week ; instructions given with saw superintendent Patient had questions about the endoscopy and I advised her to follow up in my office in 2-4 weeks to discuss elective endoscopy as at this time her esophagus may be too inflamed Plan discussed with: Patient, Other (Dr Bacaajj) NASREEN CADENA MD Oct 01, 2025 18:01
--- NOTE | 2025-10-03 07:31 | ECG ---
[facility] Test Date: 2025-09-27 Test Time: 23:46:37 Pat Name: JEFE BARBER Department: Room: 0297T Gender: F Wheel Alignment Technician: NATALIO : 1965 Requested By: MARI YOU Order Number: [id number] Reading MD: Measurements Intervals Veteran Rate: 92 P: 72 NJ: 133 QRS: 73 QRSD: 92 T: 55 QT: 356 QTc: 441 Interpretive Statements Sinus rhythm Minimal ST depression, inferior leads Please click the below link to view image of tracing.
== END 2025-10-01 16:55 | disposition home or self-care (01) | DRG 241 ==
LOC: ER 23:32 → OVERFLOW 09-28 03:37 → TELE-WESTW 09-28 18:45
PROVIDERS: ADMIT Student in an Organized Health Care Education/Training Program; ATTEND Student in an Organized Health Care Education/Training Program
DX: K29.00 Acute gastritis without bleeding (principal); E87.20 Acidosis, unspecified; R65.11 Systemic inflammatory response syndrome (SIRS) of non-infectious origin with acute organ dysfunction; T28.5XXA Corrosion of mouth and pharynx, initial encounter; E87.6 Hypokalemia; Y92.89 Other specified places as the place of occurrence of the external cause; T65.891A Toxic effect of other specified substances, accidental (unintentional), initial encounter
CPT/HCPCS: 36415; 71045; 71260; 74177; 80053; 80307; 81001; 83605; 83690; 83735; 84484; 85025; 85610; 85730; 86850; 86900; 86901; 96374; 96375; G0378; J2405; J2470; Q0162